=== PATIENT | female | born 1965 | race Caucasian/White ===

== ENCOUNTER 2018-08-26 08:39 | Emergency (ER) | payer OTHER ==
--- NOTE | 2018-08-26 08:48 | NUR ---
PER REGISTRATION: PT STATED SHE WANTED AND NEEDED AN MRI AND GALLBALDDER SURGERY. SHE INFORMED PT WE DIDNT HAVE AN MRI MACHINE HERE BUT THAT WE COULD SEE HER AND EVALUATE HER FOR THE APPROPRIATE TREATMENT. PT STATED SHE WAS GOING TO CALL SOMEONE ELSE BECAUSE SHE THOUGHT WE COULD DO THE SURGERY HERE. PT WAS TOLD WE WOULD SEE HER HERE AND TRANSFER HER TO [facility] IF NEEDED. PT AGREED AND FILLED OUT FORM THEN ABRUPTLY LEFT WHEN ARMATURE VARNISHER WALKED TO THE BACK WITH CONSENTS FOR ANOTHER PT.
== END 2018-08-26 08:49 | disposition short-term general hospital (02) ==
LOC: FSED 08:39
DX: Z53.21 Procedure and treatment not carried out due to patient leaving prior to being seen by health care provider (principal)